=== PATIENT | female | born 1960 | race Caucasian/White ===

== ENCOUNTER → 2020-05-22 | Outpatient (CLI) | payer OTHER ==
[~2020-05-22] MED LIST: ARMOUR THYROID30 M1 PO; IMITREX20 MG PO; KEFLEX500 MG PO; PREDNISONE 20 M20 M1 PO; THERA-M CAPLET1 EACH PO; TOPAMAX25 M1 PO; TORADOL 10 MG T10 MG PO; ZOFRAN4 MG PO
== END ==
LOC: CAT 08:27
PROVIDERS: ATTEND Family Medicine
DX: Z13.6 Encounter for screening for cardiovascular disorders (principal); I25.10 Atherosclerotic heart disease of native coronary artery without angina pectoris; E78.00 Pure hypercholesterolemia, unspecified